=== PATIENT | female | born 1990 | race American Indian/Alaskan Native ===

== ENCOUNTER 2018-10-31 07:14 | Emergency (ER) | payer MEDICAID ==
[2018-10-31] MEDS ORDERED: DELTASONE PO ONE (08:52)
[2018-10-31] MEDS ORDERED: ATROVENT IH ONE (08:52)
[2018-10-31] MEDS ORDERED: PROVENTIL IH ONE (08:52)
[2018-10-31] MEDS ORDERED: CLARITIN PO ONE (08:53)
[2018-10-31] MEDS ORDERED: VIBRAMYCIN PO ONE (08:53)
--- NOTE | 2018-10-31 08:59 | Emergency Department Report ---
ED Asthma HPI - General Chief Complaint: Adult Asthma Stated Complaint: ASTHMA ATTACK Time Seen by Provider: 10/31/18 08:47 Source: patient Mode of arrival: Ambulatory Limitations: No Limitations - History of Present Illness Initial Comments: Ms. Khalil is a 27 yo female with mild intermittent asthma who presents with asthma attack symptoms, wheezing shortness of breath. Shortness of breath has been present for 2 days since Monday. +nasal congestion, productive cough white phlegm. Roommates smoke in the home. One hospitalization 2016 at [facility]. Normally has bad asthma attacks twice a year during weather change. Has run out of medication for nebulizer. Inhaler is not working. MD Complaint: "asthma attack", shortness of breath -: Gradual, days(s) (2) Asthma History: childhood onset, history of frequent attac, history of prior ED visit, other (no history of intubation) Severity: mild Context: ran out of meds Associated Symptoms: productive cough, chest pain, other (productive cough) - Related Data Previous Rx's Medication Instructions Recorded Last Taken Type ALBUTEROL Inhaler (OR & NICU) 2 puff IH QID PRN #1 inha 10/31/18 Unknown Rx [ProAir HFA Inhaler] ALBUTEROL NEB's [Proventil 0.083% 2.5 mg IH QID PRN #1 box 10/31/18 Unknown Rx NEBS] Doxycycline [Vibramycin CAP] 100 mg PO Q12HR 7 Days #14 capsule 10/31/18 Unknown Rx predniSONE [Deltasone] 3 tab PO QDAY 3 Days #9 tab 10/31/18 Unknown Rx Allergies Allergy/AdvReac Type Severity Reaction Status Date / Time No Known Allergies Allergy Unverified 10/31/18 07:20 ED Review of Systems ROS: Stated complaint: ASTHMA ATTACK Other details as noted in HPI Comment: All other systems reviewed and negative Constitutional: denies: fever, malaise Respiratory: cough, shortness of breath, wheezing Cardiovascular: chest pain ED Past Medical Hx - Past Medical History Previous Medical History?: Yes Hx Asthma: Yes - Surgical History Past Surgical History?: No - Social History Smoking Status: Never Smoker Substance Use Type: None - Medications Home Medications: Home Medications Medication Instructions Recorded Confirmed Last Taken Type ALBUTEROL Inhaler (OR & NICU) 2 puff IH QID PRN #1 inha 10/31/18 Unknown Rx [ProAir HFA Inhaler] ALBUTEROL NEB's [Proventil 0.083% 2.5 mg IH QID PRN #1 box 10/31/18 Unknown Rx NEBS] Doxycycline [Vibramycin CAP] 100 mg PO Q12HR 7 Days #14 capsule 10/31/18 Unknown Rx predniSONE [Deltasone] 3 tab PO QDAY 3 Days #9 tab 10/31/18 Unknown Rx ED Physical Exam - General Limitations: No Limitations General appearance: alert, in no apparent distress, other (talkative, articulate, no acute distress) - Head Head exam: Present: atraumatic, normocephalic - Eye Eye exam: Present: normal appearance - ENT ENT exam: Present: mucous membranes moist - Neck Neck exam: Present: normal inspection - Respiratory Respiratory exam: Present: wheezes, prolonged expiratory. Absent: respiratory distress, rales, rhonchi, accessory muscle use, decreased breath sounds - Cardiovascular Cardiovascular Exam: Present: regular rate, normal rhythm, normal heart sounds. Absent: systolic murmur, diastolic murmur, rubs, gallop - GI/Abdominal GI/Abdominal exam: Present: soft, normal bowel sounds. Absent: tenderness, guarding, rebound - Extremities Exam Extremities exam: Present: normal inspection - Back Exam Back exam: Present: normal inspection - Neurological Exam Neurological exam: Present: alert, oriented X3 - Psychiatric Psychiatric exam: Present: normal affect, normal mood - Skin Skin exam: Present: warm, dry, intact, normal color. Absent: rash ED Course Vital Signs 10/31/18 07:20 Temperature 98.4 F Pulse Rate 103 H Respiratory 20 Rate Blood Pressure 154/96 O2 Sat by Pulse 97 Oximetry ED Medical Decision Making - Medical Decision Making Ms. Khalil presents with mild asthma exacerbation. Prescribed doxycycline with history of tobacco smoke exposure and productive cough. Prescribed loratadine, albuterol MDI, prednisone, albuterol nebulizer solution Critical care attestation.: If time is entered above; I have spent that time in minutes in the direct care of this critically ill patient, excluding procedure time. ED Disposition Clinical Impression: Acute asthma exacerbation Disposition: DC-01 TO HOME OR SELFCARE Is pt being admited?: No Does the pt Need Aspirin: No Condition: Stable Instructions: Asthma (ED) Prescriptions: predniSONE [Deltasone] 3 tab PO QDAY 3 Days #9 tab ALBUTEROL Inhaler (OR & NICU) [ProAir HFA Inhaler] 2 puff IH QID PRN #1 inha PRN Reason: Shortness Of Breath ALBUTEROL NEB's [Proventil 0.083% NEBS] 2.5 mg IH QID PRN #1 box PRN Reason: Shortness Of Breath Doxycycline [Vibramycin CAP] 100 mg PO Q12HR 7 Days #14 capsule Forms: Work/School Release Form(ED)
[2018-10-31 10:07] VITALS: BP 151/97
== END 2018-10-31 10:05 | disposition home or self-care (01) ==
LOC: ED 07:14
DX: J45.901 Unspecified asthma with (acute) exacerbation (principal)
CPT/HCPCS: 94640; 99282; J7512

== ENCOUNTER 2019-06-06 06:46 | Emergency (ER) | payer MEDICAID ==
[2019-06-06 06:52] VITALS: BP 148/92
[2019-06-06] MEDS ORDERED: IPRATROPIUM/ALBUTEROL SULFATE 3 ML AMPUL.NEB IH ONE ×2 (06:57→07:01)
[2019-06-06] MEDS ORDERED: methylPREDNISolone Sod Succinate 125 MG/2 ML INJ IM ONE (07:43)
[2019-06-06] MEDS ORDERED: guaiFENesin 100 MG/5 ML ORAL LIQD PO ONE (07:44)
--- NOTE | 2019-06-06 07:44 | Emergency Department Report ---
Minor Respiratory - HPI Chief Complaint: Adult Asthma Stated Complaint: ASTHMA ATTACK Time Seen by Provider: 06/06/19 07:36 Duration: 2 Days Severity: mild Minor Respiratory: Yes Able to Tolerate Fluids, Yes Cough (dry), No Rhinorrhea, No Sore Throat, No Ear Pain, No Sick Contacts, No Hemoptysis, No Chest Pain, No Shortness of Breath, No Fever Other History: 28-year-old female with a history of childhood asthma currently on medications presents to ED with 2 days of dry intermittent cough in an asthmatic flareup. Patient states that she's been using her inhaler with no relief. Patient states she is out of her albuterol liquid for nebulizer. Patient states she has not been around any sick contact. She denies chest pain or difficulty breathing. ED Review of Systems ROS: Stated complaint: ASTHMA ATTACK Other details as noted in HPI Comment: All other systems reviewed and negative ED Past Medical Hx - Past Medical History Previous Medical History?: Yes Hx Asthma: Yes - Surgical History Past Surgical History?: No - Social History Smoking Status: Former Smoker Substance Use Type: None - Medications Home Medications: Home Medications Medication Instructions Recorded Confirmed Last Taken Type DOXYCYCLINE Hyclate [Vibramycin 100 mg PO Q12HR 7 Days #14 capsule 10/31/18 Unknown Rx CAP] ALBUTEROL Inhaler (OR & NICU) 2 puff IH QID PRN #1 inha 06/06/19 Unknown Rx [ProAir HFA Inhaler] ALBUTEROL NEB's [Proventil 0.083% 2.5 mg IH QID PRN #1 box 06/06/19 Unknown Rx NEBS] Benzonatate [Tessalon Perles] 100 mg PO Q8HR #30 capsule 06/06/19 Unknown Rx predniSONE [Deltasone] 3 tab PO QDAY 3 Days #9 tab 06/06/19 Unknown Rx Minor Respiratory Exam - Exam General: Vital signs noted. No distress. Alert and acting appropriately. HEENT: Yes Moist Mucous Membranes, No Pharyngeal Erythema, No Pharyngeal Exudates, No Rhinorrhea, No Conjuctival Injection, No Frontal Tenderness, No Maxillary Tenderness Ear: Neither TM Bulge, Neither TM Erythema, Neither EAC Pain, Neither EAC Discharge Neck: Yes Supple, No Adenopathy Lungs: Yes Good Air Exchange, Yes Wheezes (mild bilaterally), No Ronchi, No Stridor, No Cough, No Labored Respirations, No Retractions, No Use of Accessory Muscles, No Other Abnormal Lung Sounds Heart: Yes Regular, No Murmur Abdomen: Yes Normal Bowel Sounds, No Tenderness, No Peritoneal Signs Skin: No Rash, No Edema Neurologic: Alert and oriented, no deficits. Musculoskeletal: Unremarkable. ED Course Vital Signs 06/06/19 06:50 Temperature 98.4 F Pulse Rate 95 H Respiratory 18 Rate Blood Pressure 148/92 O2 Sat by Pulse 95 Oximetry ED Medical Decision Making - Radiology Data Radiology results: report reviewed, image reviewed CHEST 1 VIEW INDICATION: cough and wheezing. COMPARISON: None. FINDINGS: Support devices: None. Heart: Within normal limits. Pulmonary vasculature: Normal. Lungs/Pleura: No acute air space or interstitial disease. Additional findings: None. IMPRESSION: Normal chest. Signer Name: Bob Jackson MD Signed: 06/06/2019 8:13 AM Workstation Name: [id number] Transcribed By: REF Dictated By: BOB JACKSON MD Electronically Authenticated By: BOB JACKSON MD Signed Date/Time: 06/06/19 0813 - Medical Decision Making 28-year-old female presents with asthma exacerbation (Mild) ED course: Patient received a breathing treatment, Solu-Medrol, cough suppressant in the ED. Chest x-ray ordered, chest x-ray shows no acute findings. Patient had no respiratory distress in the ED. Post treatment evaluation: mild wheezing heard, no use of accessory muscles, I discussed with the patient to follow up with her primary care physician. I discussed with the patient will be going home on with albuterol inhaler as well as nebulizer Vital signs are normalized, patient is saturation at 98% on room air. Patient looks and feels much better. She is in no respiratory distress I discussed with the patient is symptoms worsen to return to ED immediately.. Critical care attestation.: If time is entered above; I have spent that time in minutes in the direct care of this critically ill patient, excluding procedure time. ED Disposition Clinical Impression: Asthmatic bronchitis Disposition: DC-01 TO HOME OR SELFCARE Is pt being admited?: No Does the pt Need Aspirin: No Condition: Stable Instructions: Acute Bronchitis (ED), Bronchospasm (ED) Additional Instructions: Make sure to follow up with the primary care physician as discussed. Take all your medications as you've been prescribed. If you have any worsening symptoms or develop new symptoms please return to ED immediately. Prescriptions: predniSONE [Deltasone] 3 tab PO QDAY 3 Days #9 tab ALBUTEROL Inhaler (OR & NICU) [ProAir HFA Inhaler] 2 puff IH QID PRN #1 inha PRN Reason: Shortness Of Breath ALBUTEROL NEB's [Proventil 0.083% NEBS] 2.5 mg IH QID PRN #1 box PRN Reason: Shortness Of Breath Benzonatate [Tessalon Perles] 100 mg PO Q8HR #30 capsule Referrals: [facility] [Provider Group] - 3-5 Days [facility] [Outside] - 3-5 Days [facility] [Outside] - 3-5 Days Forms: Work/School Release Form(ED) Time of Disposition: 08:00
--- NOTE | 2019-06-06 08:18 | XRay Report ---
CHEST 1 VIEW INDICATION: cough and wheezing. COMPARISON: None. FINDINGS: Support devices: None. Heart: Within normal limits. Pulmonary vasculature: Normal. Lungs/Pleura: No acute air space or interstitial disease. Additional findings: None. IMPRESSION: Normal chest. Signer Name: Bob Dexter MD Signed: 06/06/2019 8:13 AM Workstation Name: [id number]
== END 2019-06-06 08:27 | disposition home or self-care (01) ==
LOC: ED 06:46
DX: J45.909 Unspecified asthma, uncomplicated (principal); Z87.891 Personal history of nicotine dependence; Z79.899 Other long term (current) drug therapy
CPT/HCPCS: 71046; 94640; 96372; 99284; J2930

== ENCOUNTER 2019-09-18 11:36 | Emergency (ER) | payer MEDICAID ==
--- NOTE | 2019-09-18 12:43 | Event Note ---
ED Screening Note Date of service: 09/18/19 Time: 12:41 ED Screening Note: Pt is a 28 yo female She was not screened in triage chart was opened in error charted on the wrong patient
[2019-09-18 13:56] VITALS: BP 145/83
--- NOTE | 2019-09-18 14:01 | Event Note ---
ED Screening Note Date of service: 09/18/19 Time: 13:57 ED Screening Note: 28 yo asthmatic female presents with asthma flare up stating her meds are not working, albuterol inhaler pt also mentions intermittent mild vaginal bleed x 1 month state nexplanon x 3 years , last cycle 2 yyears ago This initial assessment/diagnostic orders/clinical plan/treatment(s) is/are subject to change based on patients health status, clinical progression and re- assessment by fellow clinical providers in the ED. Further treatment and workup at subsequent clinical providers discretion. Patient/guardian urged not to elope from the ED as their condition may be serious if not clinically assessed and managed. 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
== END 2019-09-18 15:00 | disposition left against medical advice (07) ==
LOC: ED 11:36
DX: J45.909 Unspecified asthma, uncomplicated (principal); N93.9 Abnormal uterine and vaginal bleeding, unspecified; Z53.21 Procedure and treatment not carried out due to patient leaving prior to being seen by health care provider

== ENCOUNTER 2020-05-11 09:20 | Emergency (ER) | payer MEDICAID ==
[2020-05-11 09:33] VITALS: BP 149/86
[2020-05-11] MEDS ORDERED: FLUORESCEIN 1 MG STRIP OP ONE ×2 (11:27)
[2020-05-11] MEDS ORDERED: IBUPROFEN 800 MG TAB PO ONE (11:40)
[2020-05-11] MEDS ORDERED: HYDROcodone/ACETAMINOPHEN 5-325 MG TAB PO ONE (11:40)
--- NOTE | 2020-05-11 11:44 | Emergency Department Report ---
ED General Adult HPI - General Chief complaint: Eye Problems Stated complaint: LT EYE SWOLLEN/DRAINAGE Time Seen by Provider: 05/11/20 11:00 Source: patient Mode of arrival: Ambulatory Limitations: No Limitations - History of Present Illness Initial comments: 29 yo AA F pt presents with complaints of left eye pain and swelling x 2 days. Pt reports the pain started yesterday when she was attempted to get something out of her eye. She denies any contact lenses or direct trauma to the eye, pain with eye movements, vision changes, photophobia, or headache. She rates her current pain as a 8/10 in severity and describes it as throbbing. - Related Data Previous Rx's Medication Instructions Recorded Last Taken Type DOXYCYCLINE Hyclate [Vibramycin 100 mg PO Q12HR 7 Days #14 capsule 10/31/18 Unknown Rx CAP] ALBUTEROL NEB's [Proventil 0.083% 2.5 mg IH QID PRN #1 box 06/06/19 Unknown Rx NEBS] Benzonatate [Tessalon Perles] 100 mg PO Q8HR #30 capsule 06/06/19 Unknown Rx predniSONE [Deltasone] 3 tab PO QDAY 3 Days #9 tab 06/06/19 Unknown Rx Albuterol Mdi (or & Nicu Only) 2 puff IH QID PRN #1 inha 05/11/20 Unknown Rx [ProAir HFA Inhaler] Clindamycin [Clindamycin CAP] 300 mg PO Q6H 3 Days #12 capsule 05/11/20 Unknown Rx Erythromycin [Erythromycin Ophth 1 cm OU Q4H 7 Days #1 tube 05/11/20 Unknown Rx Oint] Ibuprofen [Motrin 800 MG tab] 800 mg PO Q8HR PRN #15 tablet 05/11/20 Unknown Rx Allergies Allergy/AdvReac Type Severity Reaction Status Date / Time No Known Allergies Allergy Unverified 10/31/18 07:20 ED Review of Systems ROS: Stated complaint: LT EYE SWOLLEN/DRAINAGE Other details as noted in HPI Constitutional: denies: chills, diaphoresis, fever, malaise Eyes: eye pain, eye discharge. denies: vision change Respiratory: denies: cough Skin: change in color. denies: rash, lesions Neurological: denies: headache, numbness Hematological/Lymphatic: denies: swollen glands ED Past Medical Hx - Past Medical History Previous Medical History?: Yes Hx Asthma: Yes - Social History Smoking Status: Former Smoker Substance Use Type: None - Medications Home Medications: Home Medications Medication Instructions Recorded Confirmed Last Taken Type DOXYCYCLINE Hyclate [Vibramycin 100 mg PO Q12HR 7 Days #14 capsule 10/31/18 Unknown Rx CAP] ALBUTEROL NEB's [Proventil 0.083% 2.5 mg IH QID PRN #1 box 06/06/19 Unknown Rx NEBS] Benzonatate [Tessalon Perles] 100 mg PO Q8HR #30 capsule 06/06/19 Unknown Rx predniSONE [Deltasone] 3 tab PO QDAY 3 Days #9 tab 06/06/19 Unknown Rx Albuterol Mdi (or & Nicu Only) 2 puff IH QID PRN #1 inha 05/11/20 Unknown Rx [ProAir HFA Inhaler] Clindamycin [Clindamycin CAP] 300 mg PO Q6H 3 Days #12 capsule 05/11/20 Unknown Rx Erythromycin [Erythromycin Ophth 1 cm OU Q4H 7 Days #1 tube 05/11/20 Unknown Rx Oint] Ibuprofen [Motrin 800 MG tab] 800 mg PO Q8HR PRN #15 tablet 05/11/20 Unknown Rx ED Physical Exam - General Limitations: No Limitations General appearance: alert, in no apparent distress - Head Head exam: Present: atraumatic, normocephalic - Eye Eye exam: Present: PERRL, EOMI (no pain with EOMs), conjunctival injection (left), periorbital swelling (mild with milkd erythema of upper and lower left lids), periorbital tenderness (left upper inner lid only). Absent: scleral icterus Pupils: Present: other (no corneal abrasion noted on wood's lamp exam; eyelid everted and swept-no foreign bodies noted. ) - ENT ENT exam: Present: mucous membranes moist - Respiratory Respiratory exam: Absent: respiratory distress - Cardiovascular Cardiovascular Exam: Present: regular rate - Neurological Exam Neurological exam: Present: alert, oriented X3 - Psychiatric Psychiatric exam: Present: normal affect, normal mood - Skin Skin exam: Present: warm, dry, intact. Absent: rash ED Course Vital Signs 05/11/20 09:28 Temperature 97.5 F L Pulse Rate 77 Respiratory 18 Rate Blood Pressure 149/86 O2 Sat by Pulse 97 Oximetry ED Medical Decision Making - Medical Decision Making 29 yo AA F pt presents with complaints of left eye pain and swelling x 2 days. Pt reports the pain started yesterday when she was attempted to get something out of her eye. She denies any contact lenses or direct trauma to the eye, pain with eye movements, photophobia, or headache. She rates her current pain as a 8/10 in severity and describes it as throbbing. No corneal abrasion noted on wood's lamp eye exam. Significant erythema of the conjunctiva noted with mild swelling of the upper and lower lids. Will treat for bacterial conjunctivitis with clindamycin and erythromycin. Recommend f/u with PCP within 2-3 days. Discussed signs and symptoms that should prompt immediate return to the ED, pt states understanding. Critical care attestation.: If time is entered above; I have spent that time in minutes in the direct care of this critically ill patient, excluding procedure time. ED Disposition Clinical Impression: Bacterial conjunctivitis of left eye Disposition: DC-01 TO HOME OR SELFCARE Is pt being admited?: No Condition: Stable Instructions: Conjunctivitis (ED), Stye (ED) Prescriptions: Clindamycin [Clindamycin CAP] 300 mg PO Q6H 3 Days #12 capsule Erythromycin [Erythromycin Ophth Oint] 1 cm OU Q4H 7 Days #1 tube Ibuprofen [Motrin 800 MG tab] 800 mg PO Q8HR PRN #15 tablet PRN Reason: pain Albuterol Mdi (or & Nicu Only) [ProAir HFA Inhaler] 2 puff IH QID PRN #1 inha PRN Reason: Shortness Of Breath Referrals: PRIMARY CARE,MD [Primary Care Provider] - 3-5 Days Forms: Work/School Release Form(ED)
== END 2020-05-11 12:05 | disposition home or self-care (01) ==
LOC: ED 09:20
DX: H10.9 Unspecified conjunctivitis (principal); J45.909 Unspecified asthma, uncomplicated; Z79.899 Other long term (current) drug therapy; Z87.891 Personal history of nicotine dependence

== ENCOUNTER 2020-05-14 16:05 | Emergency (ER) | payer MEDICAID ==
[2020-05-14 17:06] VITALS: BP 146/83
--- NOTE | 2020-05-14 18:56 | Emergency Department Report ---
ED Eye Problem HPI - General Chief complaint: Eye Problems Stated complaint: EYE PAINS CHEST PAINS Time Seen by Provider: 05/14/20 18:55 Source: patient Mode of arrival: Ambulatory Limitations: No Limitations - History of Present Illness Initial comments: Patient is a 29-year-old female presents emergency room with complaints of bilateral eye irritation that began 3 days ago. She states that initially it began in the left eye but now feels like it spreading to the right eye. She states that she has associated eye itching, eye watering, eye drainage, crusting of the eyes, eyelash matting. She initially states that a bug flew into her eye and she got out with her fingers, she had a Montes lamp examination in the emergency department 3 days ago which did not show any signs of uptake, she was prescribed medications and given follow-up. She states that she presents due to continued irritation and drainage. She states that the swelling has improved. She denies any contact lens use. She denies any vision changes. No past medical history. No allergies medications. - Related Data Previous Rx's Medication Instructions Recorded Last Taken Type DOXYCYCLINE Hyclate [Vibramycin 100 mg PO Q12HR 7 Days #14 capsule 10/31/18 Unknown Rx CAP] ALBUTEROL NEB's [Proventil 0.083% 2.5 mg IH QID PRN #1 box 06/06/19 Unknown Rx NEBS] Benzonatate [Tessalon Perles] 100 mg PO Q8HR #30 capsule 06/06/19 Unknown Rx predniSONE [Deltasone] 3 tab PO QDAY 3 Days #9 tab 06/06/19 Unknown Rx Albuterol Mdi (or & Nicu Only) 2 puff IH QID PRN #1 inha 05/11/20 Unknown Rx [ProAir HFA Inhaler] Clindamycin [Clindamycin CAP] 300 mg PO Q6H 3 Days #12 capsule 05/11/20 Unknown Rx Erythromycin [Erythromycin Ophth 1 cm OU Q4H 7 Days #1 tube 05/11/20 Unknown Rx Oint] Ibuprofen [Motrin 800 MG tab] 800 mg PO Q8HR PRN #15 tablet 05/11/20 Unknown Rx Ketotifen Fumarate [Allergy Eye 1 drop OP BID 7 Days #1 bottle 05/14/20 Unknown Rx Drops] Moxifloxacin 0.5% [Vigamox] 1 drops OP Q8H 7 Days #1 bottle 05/14/20 Unknown Rx Allergies Allergy/AdvReac Type Severity Reaction Status Date / Time No Known Allergies Allergy Unverified 10/31/18 07:20 ED Review of Systems ROS: Stated complaint: EYE PAINS CHEST PAINS Other details as noted in HPI Comment: All other systems reviewed and negative ED Past Medical Hx - Past Medical History Previous Medical History?: Yes Hx Asthma: Yes - Surgical History Past Surgical History?: No - Social History Smoking Status: Former Smoker Substance Use Type: None - Medications Home Medications: Home Medications Medication Instructions Recorded Confirmed Last Taken Type DOXYCYCLINE Hyclate [Vibramycin 100 mg PO Q12HR 7 Days #14 capsule 10/31/18 Unknown Rx CAP] ALBUTEROL NEB's [Proventil 0.083% 2.5 mg IH QID PRN #1 box 06/06/19 Unknown Rx NEBS] Benzonatate [Tessalon Perles] 100 mg PO Q8HR #30 capsule 06/06/19 Unknown Rx predniSONE [Deltasone] 3 tab PO QDAY 3 Days #9 tab 06/06/19 Unknown Rx Albuterol Mdi (or & Nicu Only) 2 puff IH QID PRN #1 inha 05/11/20 Unknown Rx [ProAir HFA Inhaler] Clindamycin [Clindamycin CAP] 300 mg PO Q6H 3 Days #12 capsule 05/11/20 Unknown Rx Erythromycin [Erythromycin Ophth 1 cm OU Q4H 7 Days #1 tube 05/11/20 Unknown Rx Oint] Ibuprofen [Motrin 800 MG tab] 800 mg PO Q8HR PRN #15 tablet 05/11/20 Unknown Rx Ketotifen Fumarate [Allergy Eye 1 drop OP BID 7 Days #1 bottle 05/14/20 Unknown Rx Drops] Moxifloxacin 0.5% [Vigamox] 1 drops OP Q8H 7 Days #1 bottle 05/14/20 Unknown Rx ED Physical Exam - General Limitations: No Limitations General appearance: alert, in no apparent distress - Head Head exam: Present: atraumatic, normocephalic - Eye Eye exam: Present: PERRL, EOMI, conjunctival injection (bilateral conjunctival injection, left greater than right, bilateral mucus drainage, bilateral eye watering, no visualized signs of ulceration), other (no pain with EOMI, no signs of entrapment, no visualized signs of foreign body ). Absent: periorbital swelling, periorbital tenderness Pupils: Present: normal accommodation - ENT ENT exam: Present: mucous membranes moist - Respiratory Respiratory exam: Absent: respiratory distress, accessory muscle use - Neurological Exam Neurological exam: Present: alert, oriented X3 - Psychiatric Psychiatric exam: Present: normal affect, normal mood - Skin Skin exam: Present: warm, dry, intact ED Course Vital Signs 05/14/20 17:03 Temperature 98.4 F Pulse Rate 84 Respiratory 18 Rate Blood Pressure 146/83 [Right] O2 Sat by Pulse 100 Oximetry ED Medical Decision Making - Medical Decision Making Patient is a 29-year-old female presents emergency room with complaints of bilateral eye irritation that began 3 days ago. She states that initially it began in the left eye but now feels like it spreading to the right eye. She states that she has associated eye itching, eye watering, eye drainage, crusting of the eyes, eyelash matting. She initially states that a bug flew into her eye and she got out with her fingers, she had a Montes lamp examination in the emergency department 3 days ago which did not show any signs of uptake, she was prescribed medications and given follow-up. She states that she presents due to continued irritation and drainage. She states that the swelling has improved. She denies any contact lens use. She denies any vision changes. No past medical history. No allergies medications. vitals are normal. on exam: bila teral conjunctival injection, left greater than right, bilateral mucus drainage, bilateral eye watering, no visualized signs of ulceration, no pain with EOMI, no signs of entrapment, no visualized signs of foreign body, no periorbital edema, erythema, or tenderness palpation. Examination appears consistent with conjunctivitis. Patient given prescription for moxifloxacin eyedrops and Zaditor eyedrops. Patient will be referred to ophthalmology. Advised patient Please use medication as prescribed. Please separate drops by 1 hour. Please continue to use the erythromycin ophthalmic ointment as prescribed and please separate it by an hour as well. Please follow-up with senior trial attorney. Return to emergency room for any new or worsening symptoms. Critical care attestation.: If time is entered above; I have spent that time in minutes in the direct care of this critically ill patient, excluding procedure time. ED Disposition Clinical Impression: Conjunctivitis Qualifiers: Conjunctivitis type: unspecified Laterality: bilateral Qualified Code(s): H10.9 - Unspecified conjunctivitis Disposition: DC-01 TO HOME OR SELFCARE Is pt being admited?: No Does the pt Need Aspirin: No Condition: Stable Instructions: Conjunctivitis (ED) Additional Instructions: Please use medication as prescribed. Please separate drops by 1 hour. Please continue to use the erythromycin ophthalmic ointment as prescribed and please separate it by an hour as well. Please follow-up with senior trial attorney. Return to emergency room for any new or worsening symptoms. Prescriptions: Ketotifen Fumarate [Allergy Eye Drops] 1 drop OP BID 7 Days #1 bottle Moxifloxacin 0.5% [Vigamox] 1 drops OP Q8H 7 Days #1 bottle Referrals: WILIAM ARELLANO MD [Staff Physician] - 2-3 Days [facility] [Provider Group] - 2-3 Days Forms: Work/School Release Form(ED) Time of Disposition: 18:59 Print Language: AMHARIC
== END 2020-05-14 20:30 | disposition home or self-care (01) ==
LOC: ED 16:05
DX: H10.9 Unspecified conjunctivitis (principal); J45.909 Unspecified asthma, uncomplicated; Z87.891 Personal history of nicotine dependence; Z79.1 Long term (current) use of non-steroidal anti-inflammatories (NSAID); Z79.2 Long term (current) use of antibiotics; Z79.899 Other long term (current) drug therapy
CPT/HCPCS: 99282

== ENCOUNTER 2020-12-05 14:40 | Emergency (ER) | payer MEDICAID ==
[2020-12-05 14:55] VITALS: BP 149/61
[2020-12-05] MEDS ORDERED: dexAMETHasone 20 MG/5 ML VIAL IM ONE (15:15)
--- NOTE | 2020-12-05 15:21 | Emergency Department Report ---
ED ENT HPI - General Chief complaint: Sore Throat Stated complaint: sore throat Time Seen by Provider: 12/05/20 15:09 Source: patient Mode of arrival: Ambulatory Limitations: No Limitations - History of Present Illness Initial comments: Patient is a 30-year-old female presents emergency room with complaints of a sore throat that began 3 days ago. She states that she also has a dry cough. She states that she has pain with swallowing. She is able to swallow her secretions but states it is painful. She states that she has had a sick contact and reports that her daughter and her niece had URI symptoms. She denies any fever, nausea, vomiting, diarrhea, shortness of breath, chest pain, abdominal pain. Patient states that they recently traveled to [facility] a week ago. Past medical history of asthma, she states that she needs a refill of her inhaler but has no wheezing currently. No allergies to medications. - Related Data Previous Rx's Medication Instructions Recorded Last Taken Type DOXYCYCLINE Hyclate [Vibramycin 100 mg PO Q12HR 7 Days #14 capsule 10/31/18 Unknown Rx CAP] ALBUTEROL NEB's [Proventil 0.083% 2.5 mg IH QID PRN #1 box 06/06/19 Unknown Rx NEBS] Benzonatate [Tessalon Perles] 100 mg PO Q8HR #30 capsule 06/06/19 Unknown Rx predniSONE [Deltasone] 3 tab PO QDAY 3 Days #9 tab 06/06/19 Unknown Rx Albuterol Mdi (or & Nicu Only) 2 puff IH QID PRN #1 inha 05/11/20 Unknown Rx [ProAir HFA Inhaler] Clindamycin [Clindamycin CAP] 300 mg PO Q6H 3 Days #12 capsule 05/11/20 Unknown Rx Erythromycin [Erythromycin Ophth 1 cm OU Q4H 7 Days #1 tube 05/11/20 Unknown Rx Oint] Ibuprofen [Motrin 800 MG tab] 800 mg PO Q8HR PRN #15 tablet 05/11/20 Unknown Rx Ketotifen Fumarate [Allergy Eye 1 drop OP BID 7 Days #1 bottle 05/14/20 Unknown Rx Drops] Moxifloxacin 0.5% 1 drops OP Q8H 7 Days #1 bottle 05/14/20 Unknown Rx Albuterol Sulfate [Proventil Hfa] 1 inhalation IH TID PRN #1 05/15/21 Unknown Rx [email or web address] Amoxicillin [Amoxicillin TAB] 875 mg PO BID 10 Days #20 tablet 12/05/20 Unknown Rx Nystas/Diphen/Xyl Visc/Mylanta 30 ml MM Q4H PRN #300 ml 12/05/20 Unknown Rx [Magic Mouthwash] Allergies Allergy/AdvReac Type Severity Reaction Status Date / Time No Known Allergies Allergy Unverified 10/31/18 07:20 ED Dental HPI - General Chief complaint: Sore Throat Stated complaint: sore throat Time Seen by Provider: 12/05/20 15:09 Source: patient Mode of arrival: Ambulatory Limitations: No Limitations - Related Data Previous Rx's Medication Instructions Recorded Last Taken Type DOXYCYCLINE Hyclate [Vibramycin 100 mg PO Q12HR 7 Days #14 capsule 10/31/18 Unknown Rx CAP] ALBUTEROL NEB's [Proventil 0.083% 2.5 mg IH QID PRN #1 box 06/06/19 Unknown Rx NEBS] Benzonatate [Tessalon Perles] 100 mg PO Q8HR #30 capsule 06/06/19 Unknown Rx predniSONE [Deltasone] 3 tab PO QDAY 3 Days #9 tab 06/06/19 Unknown Rx Albuterol Mdi (or & Nicu Only) 2 puff IH QID PRN #1 inha 05/11/20 Unknown Rx [ProAir HFA Inhaler] Clindamycin [Clindamycin CAP] 300 mg PO Q6H 3 Days #12 capsule 05/11/20 Unknown Rx Erythromycin [Erythromycin Ophth 1 cm OU Q4H 7 Days #1 tube 05/11/20 Unknown Rx Oint] Ibuprofen [Motrin 800 MG tab] 800 mg PO Q8HR PRN #15 tablet 05/11/20 Unknown Rx Ketotifen Fumarate [Allergy Eye 1 drop OP BID 7 Days #1 bottle 05/14/20 Unknown Rx Drops] Moxifloxacin 0.5% 1 drops OP Q8H 7 Days #1 bottle 05/14/20 Unknown Rx Albuterol Sulfate [Proventil Hfa] 1 inhalation IH TID PRN #1 12/05/20 Unknown Rx [email or web address] Amoxicillin [Amoxicillin TAB] 875 mg PO BID 10 Days #20 tablet 12/05/20 Unknown Rx Nystas/Diphen/Xyl Visc/Mylanta 30 ml MM Q4H PRN #300 ml 12/05/20 Unknown Rx [Magic Mouthwash] Allergies Allergy/AdvReac Type Severity Reaction Status Date / Time No Known Allergies Allergy Unverified 10/31/18 07:20 ED Review of Systems ROS: Stated complaint: sore throat Other details as noted in HPI Comment: All other systems reviewed and negative ED Past Medical Hx - Past Medical History Hx Asthma: Yes - Surgical History Past Surgical History?: No - Social History Smoking Status: Never Smoker Substance Use Type: Alcohol - Medications Home Medications: Home Medications Medication Instructions Recorded Confirmed Last Taken Type DOXYCYCLINE Hyclate [Vibramycin 100 mg PO Q12HR 7 Days #14 capsule 10/31/18 Unknown Rx CAP] ALBUTEROL NEB's [Proventil 0.083% 2.5 mg IH QID PRN #1 box 06/06/19 Unknown Rx NEBS] Benzonatate [Tessalon Perles] 100 mg PO Q8HR #30 capsule 06/06/19 Unknown Rx predniSONE [Deltasone] 3 tab PO QDAY 3 Days #9 tab 06/06/19 Unknown Rx Albuterol Mdi (or & Nicu Only) 2 puff IH QID PRN #1 inha 05/11/20 Unknown Rx [ProAir HFA Inhaler] Clindamycin [Clindamycin CAP] 300 mg PO Q6H 3 Days #12 capsule 05/11/20 Unknown Rx Erythromycin [Erythromycin Ophth 1 cm OU Q4H 7 Days #1 tube 05/11/20 Unknown Rx Oint] Ibuprofen [Motrin 800 MG tab] 800 mg PO Q8HR PRN #15 tablet 05/11/20 Unknown Rx Ketotifen Fumarate [Allergy Eye 1 drop OP BID 7 Days #1 bottle 05/14/20 Unknown Rx Drops] Moxifloxacin 0.5% 1 drops OP Q8H 7 Days #1 bottle 05/14/20 Unknown Rx Albuterol Sulfate [Proventil Hfa] 1 inhalation IH TID PRN #1 12/05/20 Unknown Rx [email or web address] Amoxicillin [Amoxicillin TAB] 875 mg PO BID 10 Days #20 tablet 12/05/20 Unknown Rx Nystas/Diphen/Xyl Visc/Mylanta 30 ml MM Q4H PRN #300 ml 12/05/20 Unknown Rx [Magic Mouthwash] ED Physical Exam - General Limitations: No Limitations General appearance: alert, in no apparent distress - Head Head exam: Present: atraumatic, normocephalic - Eye Eye exam: Present: normal appearance - ENT ENT exam: Present: mucous membranes moist, TM's normal bilaterally, normal external ear exam, other (bilateral tonsillar hypertrophy with exudates, airway intact, mild muffled voice, uvula is midline, no uvular edema or deviation, no trismus, no tongue elevation, able to tolerate secretions) - Respiratory Respiratory exam: Present: normal lung sounds bilaterally. Absent: respiratory distress, wheezes, rales, rhonchi, stridor, chest wall tenderness, accessory muscle use, decreased breath sounds, prolonged expiratory - Cardiovascular Cardiovascular Exam: Present: regular rate, normal rhythm, normal heart sounds. Absent: systolic murmur, diastolic murmur, rubs, gallop - Neurological Exam Neurological exam: Present: alert, oriented X3 - Psychiatric Psychiatric exam: Present: normal affect, normal mood - Skin Skin exam: Present: warm, dry, intact ED Course Vital Signs 12/05/20 14:53 Temperature 99.4 F Pulse Rate 93 H Respiratory 18 Rate Blood Pressure 149/61 O2 Sat by Pulse 99 Oximetry ED Medical Decision Making - Medical Decision Making Patient is a 30-year-old female presents emergency room with complaints of a sore throat that began 3 days ago. She states that she also has a dry cough. She states that she has pain with swallowing. She is able to swallow her secretions but states it is painful. She states that she has had a sick contact and reports that her daughter and her niece had URI symptoms. She denies any fever, nausea, vomiting, diarrhea, shortness of breath, chest pain, abdominal pain. Patient states that they recently traveled to [facility] a week ago. Past medical history of asthma, she states that she needs a refill of her inhaler but has no wheezing currently. No allergies to medications. Vitals are stable. On exam:bilateral tonsillar hypertrophy with exudates, airway intact, mild muffled voice, uvula is midline, no uvular edema or deviation, no trismus, no tongue elevation, able to tolerate secretions. Examination very consistent with tonsillitis. Patient given dexamethasone IM on the emergency department and symptoms improved. Patient given refill of her home medication albuterol inhaler as requested. Patient given prescription for medications. Advised patient Please take medication as prescribed. Increase your fluid intake over the next several days. Gargle with warm salt water 3 times a day. Throw away your toothbrush after being on antibiotics for 24 hours. Do not drink after others or allow others to drink after you. Follow-up with your primary care doctor for reexamination. Return to emergency room for any new or worsening symptoms. Critical care attestation.: If time is entered above; I have spent that time in minutes in the direct care of this critically ill patient, excluding procedure time. ED Disposition Clinical Impression: Tonsillitis, Medication refill Disposition: TO HOME OR SELFCARE Is pt being admited?: No Does the pt Need Aspirin: No Condition: Stable Instructions: Tonsillitis, [id number] Additional Instructions: Please take medication as prescribed. Increase your fluid intake over the next several days. Gargle with warm salt water 3 times a day. Throw away your toothbrush after being on antibiotics for 24 hours. Do not drink after others or allow others to drink after you. Follow-up with your primary care doctor for reexamination. Return to emergency room for any new or worsening symptoms. Prescriptions: Amoxicillin [Amoxicillin TAB] 875 mg PO BID 10 Days #20 tablet Nystas/Diphen/Xyl Visc/Mylanta [Magic Mouthwash] 30 ml MM Q4H PRN #300 ml PRN Reason: sore throat Albuterol Sulfate [Proventil Hfa] 1 inhalation IH TID PRN #1 [email or web address] PRN Reason: shortness of breath/wheezing Referrals: JOHN WATSON MD [Staff Physician] - 2-3 Days [facility] [Provider Group] - 2-3 Days Time of Disposition: 15:19 Print Language: GUYANESE
== END 2020-12-05 16:55 | disposition home or self-care (01) ==
LOC: ED 14:40
DX: J03.90 Acute tonsillitis, unspecified (principal); Z76.0 Encounter for issue of repeat prescription; J45.909 Unspecified asthma, uncomplicated; Z79.1 Long term (current) use of non-steroidal anti-inflammatories (NSAID); Z79.2 Long term (current) use of antibiotics; Z79.899 Other long term (current) drug therapy
CPT/HCPCS: 96372; 99282; J1100

== ENCOUNTER 2021-01-14 17:58 | Emergency (ER) | payer MEDICAID ==
[2021-01-14 18:15] VITALS: BP 135/94
--- NOTE | 2021-01-14 18:16 | Emergency Department Report ---
ED Rash HPI - HPI Chief Complaint: Allergic Reaction Stated Complaint: RASH/ITCHING Time Seen by Provider: 01/14/21 18:15 Duration: 5 Days Location: Other Suspected Cause: Unknown Rash Symptoms: Yes Itching, No Facial Swelling, No Tongue/Oral Swelling, No Breathing Difficulties, No Choking Sensation, No Wheezing/Dyspnea, No Peeling, No Blistering, No Fever, No Lightheaded, No Malaise, No Myalgias Severity: mild Other History: 30 yo comes to ER with rash that comes and goes. It has happened since Monday. She takes benadryl and it goes away. She shows me pictures and they are hives. She has none on exam now. VSS. ABC intact. denies cp or sob. She does not know what the allergen is. No hx allergies. No one in the home with the same. ED Review of Systems ROS: Stated complaint: RASH/ITCHING Other details as noted in HPI Comment: All other systems reviewed and negative ED Past Medical Hx - Past Medical History Previous Medical History?: Yes Hx Asthma: Yes Additional medical history: obese - Surgical History Past Surgical History?: No - Family History Family history: no significant - Social History Smoking Status: Never Smoker Substance Use Type: Alcohol - Medications Home Medications: Home Medications Medication Instructions Recorded Confirmed Last Taken Type DOXYCYCLINE Hyclate [Vibramycin 100 mg PO Q12HR 7 Days #14 capsule 10/31/18 Unknown Rx CAP] ALBUTEROL NEB's [Proventil 0.083% 2.5 mg IH QID PRN #1 box 06/06/19 Unknown Rx NEBS] Benzonatate [Tessalon Perles] 100 mg PO Q8HR #30 capsule 06/06/19 Unknown Rx predniSONE [Deltasone] 3 tab PO QDAY 3 Days #9 tab 06/06/19 Unknown Rx Albuterol Mdi (or & Nicu Only) 2 puff IH QID PRN #1 inha 05/11/20 Unknown Rx [ProAir HFA Inhaler] Clindamycin [Clindamycin CAP] 300 mg PO Q6H 3 Days #12 capsule 05/11/20 Unknown Rx Erythromycin [Erythromycin Ophth 1 cm OU Q4H 7 Days #1 tube 05/11/20 Unknown Rx Oint] Ibuprofen [Motrin 800 MG tab] 800 mg PO Q8HR PRN #15 tablet 05/11/20 Unknown Rx Ketotifen Fumarate [Allergy Eye 1 drop OP BID 7 Days #1 bottle 05/14/20 Unknown Rx Drops] Moxifloxacin 0.5% 1 drops OP Q8H 7 Days #1 bottle 05/14/20 Unknown Rx Albuterol Sulfate [Proventil Hfa] 1 inhalation IH TID PRN #1 12/05/20 Unknown Rx [email or web address] Amoxicillin [Amoxicillin TAB] 875 mg PO BID 10 Days #20 tablet 12/05/20 Unknown Rx Nystas/Diphen/Xyl Visc/Mylanta 30 ml MM Q4H PRN #300 ml 12/05/20 Unknown Rx [Magic Mouthwash] Cetirizine HCl [ZyrTEC] 10 mg PO DAILY #30 capsule 01/14/21 Unknown Rx diphenhydrAMINE [Benadryl CAP] 25 mg PO Q8HR PRN #20 capsule 01/14/21 Unknown Rx predniSONE [Deltasone] 20 mg PO DAILY #5 tablet 01/14/21 Unknown Rx Rash Exam - Exam General: Vital signs noted. No distress. Alert and acting appropriately. HEENT: No Periorbital Edema, No Conjuctival Injection, No Chemosis, No Perioral Edema, No Tongue Edema, No Uvular Edema, No Compromised Airway, No Drooling Lungs: Yes Good Air Exchange (Normal Breath Sounds), No Wheezes, No Ronchi, No Stridor, No Cough, No Labored Respirations, No Retractions, No Use of Accessory Muscles, No Other Abnormal Lung Sounds Heart: Yes Regular, No Murmur Other: Positive: Abdomen Normal, Neurologic Normal, Musculoskeletal Normal ED Course Vital Signs 01/14/21 18:14 Temperature 98.0 F Pulse Rate 102 H Respiratory 18 Rate Blood Pressure 135/94 O2 Sat by Pulse 99 Oximetry ED Medical Decision Making - Medical Decision Making simple rash Pt educated on treatment of rash and identification of trigger. Dc home with rx and pcp follow up if persists. She understands she may need to see an specialty development consultant to identify cultprit. Ambulatory non illl appearing and taking po on dc Vital Signs 01/14/21 18:14 Temperature 98.0 F Pulse Rate 102 H Respiratory 18 Rate Blood Pressure 135/94 O2 Sat by Pulse 99 Oximetry - Differential Diagnosis rash/allergy Critical care attestation.: If time is entered above; I have spent that time in minutes in the direct care of this critically ill patient, excluding procedure time. ED Disposition Clinical Impression: Rash Disposition: DC-01 TO HOME OR SELFCARE Is pt being admited?: No Does the pt Need Aspirin: No Condition: Stable Instructions: Hives Additional Instructions: meds as ordered today follow up with pcp next week if persists for the testing we discussed referral below Prescriptions: diphenhydrAMINE [Benadryl CAP] 25 mg PO Q8HR PRN #20 capsule PRN Reason: Itching predniSONE [Deltasone] 20 mg PO DAILY #5 tablet Cetirizine HCl [ZyrTEC] 10 mg PO DAILY #30 capsule Referrals: JOHN WATSON MD [Staff Physician] - 3-5 Days Forms: Work/School Release Form(ED) Time of Disposition: 18:16
[2021-01-14] MEDS ORDERED: methylPREDNISolone ACETATE 80 MG/1 ML INJ IM ONE (18:19)
== END 2021-01-14 18:31 | disposition home or self-care (01) ==
LOC: ED 17:58
DX: R21 Rash and other nonspecific skin eruption (principal); J45.909 Unspecified asthma, uncomplicated; Z79.1 Long term (current) use of non-steroidal anti-inflammatories (NSAID); Z79.2 Long term (current) use of antibiotics; Z79.899 Other long term (current) drug therapy
CPT/HCPCS: 99281

== ENCOUNTER 2021-01-27 15:06 | Emergency (ER) | payer MEDICAID ==
--- NOTE | 2021-01-27 15:30 | Emergency Department Report ---
ED Lower Extremity HPI - General Stated Complaint: ANKLE INURY LT Time Seen by Provider: 01/27/21 15:21 Source: patient Mode of arrival: Ambulatory (With crutches) Limitations: No Limitations - History of Present Illness Initial Comments: This is a 30-year-old female nontoxic, well nourished in appearance, no acute signs of distress presents to the ED with for a new splint placement. Patient stated that her splint got wet and she removed it this morning. Patient otherwise denies any new trauma or injuries. Patient stated was unable to follow-up with her orthopedic doctor. Patient was seen by me and had a questionable left ankle fracture. A splint has been placed with patient remove the. Patient otherwise denies any other complaints or symptoms. Patient does have crutches present today. Patient denies any numbness, tingling, fever, chills, nausea, vomiting, chest pain, shortness of breath, headache, stiff neck. Patient denies any joint swelling or joint redness. Patient denies decreased range of motion. Patient stated has decreased gait due to pain. Patient denies any allergies or significant past medical history. MD Complaint: ankle injury -: week(s) Injury: Ankle: Left Severity scale (0 -10): 0 Associated Symptoms: able to partially bear weight. denies: snap/pop sensation, swelling, numbness, tingling, unable to bear weight - Related Data Previous Rx's Medication Instructions Recorded Last Taken Type DOXYCYCLINE Hyclate [Vibramycin 100 mg PO Q12HR 7 Days #14 capsule 10/31/18 Unknown Rx CAP] ALBUTEROL NEB's [Proventil 0.083% 2.5 mg IH QID PRN #1 box 06/06/19 Unknown Rx NEBS] Benzonatate [Tessalon Perles] 100 mg PO Q8HR #30 capsule 06/06/19 Unknown Rx predniSONE [Deltasone] 3 tab PO QDAY 3 Days #9 tab 06/06/19 Unknown Rx Albuterol Mdi (or & Nicu Only) 2 puff IH QID PRN #1 inha 05/11/20 Unknown Rx [ProAir HFA Inhaler] Clindamycin [Clindamycin CAP] 300 mg PO Q6H 3 Days #12 capsule 05/11/20 Unknown Rx Erythromycin [Erythromycin Ophth 1 cm OU Q4H 7 Days #1 tube 05/11/20 Unknown Rx Oint] Ibuprofen [Motrin 800 MG tab] 800 mg PO Q8HR PRN #15 tablet 05/11/20 Unknown Rx Ketotifen Fumarate [Allergy Eye 1 drop OP BID 7 Days #1 bottle 05/14/20 Unknown Rx Drops] Moxifloxacin 0.5% 1 drops OP Q8H 7 Days #1 bottle 05/14/20 Unknown Rx Albuterol Sulfate [Proventil Hfa] 1 inhalation IH TID PRN #1 12/05/20 Unknown Rx [email or web address] Amoxicillin [Amoxicillin TAB] 875 mg PO BID 10 Days #20 tablet 12/05/20 Unknown Rx Nystas/Diphen/Xyl Visc/Mylanta 30 ml MM Q4H PRN #300 ml 12/05/20 Unknown Rx [Magic Mouthwash] Cetirizine HCl [ZyrTEC] 10 mg PO DAILY #30 capsule 01/14/21 Unknown Rx diphenhydrAMINE [Benadryl CAP] 25 mg PO Q8HR PRN #20 capsule 01/14/21 Unknown Rx predniSONE [Deltasone] 20 mg PO DAILY #5 tablet 01/14/21 Unknown Rx Naproxen 500 mg PO Q12H PRN #12 tablet 01/15/21 Unknown Rx Allergies Allergy/AdvReac Type Severity Reaction Status Date / Time No Known Allergies Allergy Unverified 10/31/18 07:20 ED Review of Systems ROS: Stated complaint: ANKLE INURY LT Other details as noted in HPI Constitutional: denies: chills, fever Eyes: denies: eye pain, eye discharge, vision change ENT: denies: ear pain, throat pain Respiratory: denies: cough, shortness of breath, wheezing Cardiovascular: denies: chest pain, palpitations Endocrine: no symptoms reported Gastrointestinal: denies: abdominal pain, nausea, diarrhea Genitourinary: denies: urgency, dysuria, discharge Musculoskeletal: denies: back pain, joint swelling, arthralgia Skin: denies: rash, lesions Neurological: denies: headache, weakness, paresthesias Psychiatric: denies: anxiety, depression Hematological/Lymphatic: denies: easy bleeding, easy bruising ED Past Medical Hx - Past Medical History Hx Asthma: Yes Additional medical history: obese - Social History Smoking Status: Current Every Day Smoker Substance Use Type: None - Medications Home Medications: Home Medications Medication Instructions Recorded Confirmed Last Taken Type DOXYCYCLINE Hyclate [Vibramycin 100 mg PO Q12HR 7 Days #14 capsule 10/31/18 Unknown Rx CAP] ALBUTEROL NEB's [Proventil 0.083% 2.5 mg IH QID PRN #1 box 06/06/19 Unknown Rx NEBS] Benzonatate [Tessalon Perles] 100 mg PO Q8HR #30 capsule 06/06/19 Unknown Rx predniSONE [Deltasone] 3 tab PO QDAY 3 Days #9 tab 06/06/19 Unknown Rx Albuterol Mdi (or & Nicu Only) 2 puff IH QID PRN #1 inha 05/11/20 Unknown Rx [ProAir HFA Inhaler] Clindamycin [Clindamycin CAP] 300 mg PO Q6H 3 Days #12 capsule 05/11/20 Unknown Rx Erythromycin [Erythromycin Ophth 1 cm OU Q4H 7 Days #1 tube 05/11/20 Unknown Rx Oint] Ibuprofen [Motrin 800 MG tab] 800 mg PO Q8HR PRN #15 tablet 05/11/20 Unknown Rx Ketotifen Fumarate [Allergy Eye 1 drop OP BID 7 Days #1 bottle 05/14/20 Unknown Rx Drops] Moxifloxacin 0.5% 1 drops OP Q8H 7 Days #1 bottle 05/14/20 Unknown Rx Albuterol Sulfate [Proventil Hfa] 1 inhalation IH TID PRN #1 12/05/20 Unknown Rx [email or web address] Amoxicillin [Amoxicillin TAB] 875 mg PO BID 10 Days #20 tablet 12/05/20 Unknown Rx Nystas/Diphen/Xyl Visc/Mylanta 30 ml MM Q4H PRN #300 ml 12/05/20 Unknown Rx [Magic Mouthwash] Cetirizine HCl [ZyrTEC] 10 mg PO DAILY #30 capsule 01/14/21 Unknown Rx diphenhydrAMINE [Benadryl CAP] 25 mg PO Q8HR PRN #20 capsule 01/14/21 Unknown Rx predniSONE [Deltasone] 20 mg PO DAILY #5 tablet 01/14/21 Unknown Rx Naproxen 500 mg PO Q12H PRN #12 tablet 01/15/21 Unknown Rx ED Physical Exam - General General appearance: alert, in no apparent distress - Head Head exam: Present: atraumatic, normocephalic - Eye Eye exam: Present: normal appearance - Neck Neck exam: Present: normal inspection, full ROM. Absent: lymphadenopathy - Respiratory Respiratory exam: Absent: respiratory distress - Cardiovascular Cardiovascular Exam: Present: regular rate - Extremities Exam Extremities exam: Present: normal inspection, full ROM, tenderness, normal capillary refill. Absent: joint swelling, calf tenderness - Expanded Lower Extremity Exam Left Hip exam: Present: normal inspection, full ROM. Absent: tenderness, swelling Upper Leg exam: Present: normal inspection, full ROM. Absent: tenderness, swelling Knee exam: Present: normal inspection, full ROM. Absent: tenderness, swelling Lower Leg exam: Present: normal inspection, full ROM. Absent: tenderness, swelling, abrasion, laceration, ecchymosis, deformity, crepidus, dislocation, erythema, palpable cord, Krystal's sign Ankle exam: Present: normal inspection, full ROM. Absent: tenderness, swelling, abrasion, laceration, ecchymosis, deformity, crepidus, dislocation, erythema, anterior draw sign Foot/Toe exam: Present: normal inspection, full ROM, tenderness. Absent: swelling, abrasion, laceration, ecchymosis, deformity, crepidus, dislocation, erythema, amputation, puncture wound, foreign body, calcaneal tenderness, tenderness at base of 5th metatarsal, nail avulsion, subungual hematoma Neuro vascular tendon exam: Present: no vascular compromise Gait: Positive: observed and limited by pain - Back Exam Back exam: Present: normal inspection, full ROM - Neurological Exam Neurological exam: Present: alert, oriented X3 - Psychiatric Psychiatric exam: Present: normal affect, normal mood - Skin Skin exam: Present: warm, dry, intact, normal color. Absent: rash ED Course Vital Signs 01/27/21 15:29 Temperature 98.4 F Pulse Rate 83 Respiratory 18 Rate Blood Pressure 126/86 O2 Sat by Pulse 99 Oximetry - Reevaluation(s) Reevaluation #1: 01/27/21 15:29 Patient is speaking in full sentences with no signs of distress noted. ED Lower Extremity MDM - Radiology Data [facility] [address] [place] [address] XRay Report Signed Patient: JERILYN LOVE MR#: [id number] : 1990 Acct:[id number] Age/Sex: 30 / F ADM Date: 01/14/21 Loc: ED Attending Dr: Ordering Physician: GILMA RICHARD MD Date of Service: 01/14/21 Procedure(s): XR ankle BILAT 3+V Accession Number(s): [id number] cc: GILMA RICHARD MD Fluoro Time In Minutes: Bilateral ankles INDICATION: Twisting injury FINDINGS: There is diffuse soft tissue swelling in the medial and lateral aspect of the right ankle. Alignment appears normal. Talar dome appears intact. No displaced fracture. The left ankle there is diffuse swelling within the medial and lateral ankle. Talar dome appears intact. Questionable irregularity within the fifth metatarsal on the left. IMPRESSION: 1. Diffuse swelling in the medial lateral ankle bilaterally. 2. Questionable irregularity within the fifth metatarsal proximally on the left. Findings could represent fracture. Left foot radiographs recommended. Signer Name: Bud Hoyt MD Signed: 01/14/2021 11:05 PM Workstation Name: [id number] Transcribed By: CW Dictated By: BONNY HOYT MD Electronically Authenticated By: BONNY HOYT MD Signed Date/Time: 01/14/212304 DD/ 02 TD/TT: - Medical Decision Making 30-year-old female that presents with left ankle fracture. Patient stable and was examined by me. A [place] short leg splint has been reapplied. Patient does have crutches. X-rays has been reviewed from prior visit. Post splint assessment: neurovasular intact; normal cap refill <2 second; normal sensation; denies decreaed sensation; normal ROM of digits. Patient was instructed to follow-up with a orthopedic doctor in 3-5 days or if symptoms worsen and continue return to emergency room as soon as possible. At time of discharge, the patient does not seem toxic or ill in appearance. No acute signs of distress noted. Patient agrees to discharge treatment plan of care. No further questions noted by the patient. Critical care attestation.: If time is entered above; I have spent that time in minutes in the direct care of this critically ill patient, excluding procedure time. ED Disposition Clinical Impression: Aftercare for cast or splint check or change Metatarsal stress fracture of left foot Qualifiers: Encounter type: initial encounter Qualified Code(s): M84.375A - Stress fracture, left foot, initial encounter for fracture Disposition: TO HOME OR SELFCARE Is pt being admited?: No Does the pt Need Aspirin: No Condition: Stable Additional Instructions: Follow-up with a orthopedic doctor in 3-5 days or if symptoms worsen and continue return to emergency room as soon as possible. No physical activity that extremity until cleared by orthopedic doctor [facility] Address [address] [place] [address] Referrals: PRIMARY CAREMD [Referring] - 3-5 Days ALMA FIGUEROA MD [Staff Physician] - 3-5 Days Time of Disposition: 15:33
[2021-01-27 15:31] VITALS: BP 126/86
== END 2021-01-27 15:43 | disposition home or self-care (01) ==
LOC: ED 15:06
DX: M84.375D Stress fracture, left foot, subsequent encounter for fracture with routine healing (principal); J45.909 Unspecified asthma, uncomplicated; Z47.89 Encounter for other orthopedic aftercare; Z79.899 Other long term (current) drug therapy; X58.XXXD Exposure to other specified factors, subsequent encounter
CPT/HCPCS: 99281

== ENCOUNTER 2021-03-15 17:13 | Emergency (ER) | payer MEDICAID ==
[2021-03-15 19:26] VITALS: BP 145/91
--- NOTE | 2021-03-16 01:50 | Emergency Department Report ---
ED ENT HPI - General Chief complaint: Sore Throat Stated complaint: SORE THROAT Time Seen by Provider: 03/15/21 19:53 Source: patient Mode of arrival: Ambulatory Limitations: No Limitations - History of Present Illness Initial comments: 30-year-old morbid obese -[place] female presents to the emergency room for sore throat she has had for 2 days. Patient also complains of a rash that she has had intermittent in the past. Patient denies any nausea no vomiting no fever no chills. Patient is unvaccinated. Patient states she has difficulty s wallowing because of her sore throat. MD complaint: sore throat Onset/Timin -: days(s) Location: throat Severity: moderate Severity scale (0 -10): 7 Quality: burning, sharp Consistency: constant Improves with: none Worsens with: swallowing - Related Data Previous Rx's Medication Instructions Recorded Last Taken Type DOXYCYCLINE Hyclate [Vibramycin 100 mg PO Q12HR 7 Days #14 capsule 10/31/18 Unknown Rx CAP] ALBUTEROL NEB's [Proventil 0.083% 2.5 mg IH QID PRN #1 box 06/06/19 Unknown Rx NEBS] Benzonatate [Tessalon Perles] 100 mg PO Q8HR #30 capsule 06/06/19 Unknown Rx predniSONE [Deltasone] 3 tab PO QDAY 3 Days #9 tab 06/06/19 Unknown Rx Albuterol Mdi (or & Nicu Only) 2 puff IH QID PRN #1 inha 05/11/20 Unknown Rx [ProAir HFA Inhaler] Clindamycin [Clindamycin CAP] 300 mg PO Q6H 3 Days #12 capsule 05/11/20 Unknown Rx Erythromycin [Erythromycin Ophth 1 cm OU Q4H 7 Days #1 tube 05/11/20 Unknown Rx Oint] Ketotifen Fumarate [Allergy Eye 1 drop OP BID 7 Days #1 bottle 05/14/20 Unknown Rx Drops] Moxifloxacin 0.5% 1 drops OP Q8H 7 Days #1 bottle 05/14/20 Unknown Rx Albuterol Sulfate [Proventil Hfa] 1 inhalation IH TID PRN #1 12/05/20 Unknown Rx [email or web address] Amoxicillin [Amoxicillin TAB] 875 mg PO BID 10 Days #20 tablet 12/05/20 Unknown Rx Nystas/Diphen/Xyl Visc/Mylanta 30 ml MM Q4H PRN #300 ml 12/05/20 Unknown Rx [Magic Mouthwash] Cetirizine HCl [ZyrTEC] 10 mg PO DAILY #30 capsule 01/14/21 Unknown Rx diphenhydrAMINE [Benadryl CAP] 25 mg PO Q8HR PRN #20 capsule 01/14/21 Unknown Rx predniSONE [Deltasone] 20 mg PO DAILY #5 tablet 01/14/21 Unknown Rx Naproxen 500 mg PO Q12H PRN #12 tablet 01/15/21 Unknown Rx Amoxicillin/K Clav Tab [Augmentin 1 tab PO Q12HR 10 Days #20 tab 03/16/21 Unknown Rx 875 mg] Ibuprofen [Motrin 800 MG tab] 800 mg PO Q8HR PRN #15 tablet 03/16/21 Unknown Rx Allergies Allergy/AdvReac Type Severity Reaction Status Date / Time No Known Allergies Allergy Unverified 10/31/18 07:20 ED Dental HPI - General Chief complaint: Sore Throat Stated complaint: SORE THROAT Time Seen by Provider: 03/15/21 19:53 Source: patient Mode of arrival: Ambulatory Limitations: No Limitations - Related Data Previous Rx's Medication Instructions Recorded Last Taken Type DOXYCYCLINE Hyclate [Vibramycin 100 mg PO Q12HR 7 Days #14 capsule 10/31/18 Unknown Rx CAP] ALBUTEROL NEB's [Proventil 0.083% 2.5 mg IH QID PRN #1 box 06/06/19 Unknown Rx NEBS] Benzonatate [Tessalon Perles] 100 mg PO Q8HR #30 capsule 06/06/19 Unknown Rx predniSONE [Deltasone] 3 tab PO QDAY 3 Days #9 tab 06/06/19 Unknown Rx Albuterol Mdi (or & Nicu Only) 2 puff IH QID PRN #1 inha 05/11/20 Unknown Rx [ProAir HFA Inhaler] Clindamycin [Clindamycin CAP] 300 mg PO Q6H 3 Days #12 capsule 05/11/20 Unknown Rx Erythromycin [Erythromycin Ophth 1 cm OU Q4H 7 Days #1 tube 05/11/20 Unknown Rx Oint] Ketotifen Fumarate [Allergy Eye 1 drop OP BID 7 Days #1 bottle 05/14/20 Unknown Rx Drops] Moxifloxacin 0.5% 1 drops OP Q8H 7 Days #1 bottle 05/14/20 Unknown Rx Albuterol Sulfate [Proventil Hfa] 1 inhalation IH TID PRN #1 12/05/20 Unknown Rx [email or web address] Amoxicillin [Amoxicillin TAB] 875 mg PO BID 10 Days #20 tablet 12/05/20 Unknown Rx Nystas/Diphen/Xyl Visc/Mylanta 30 ml MM Q4H PRN #300 ml 12/05/20 Unknown Rx [Magic Mouthwash] Cetirizine HCl [ZyrTEC] 10 mg PO DAILY #30 capsule 01/14/21 Unknown Rx diphenhydrAMINE [Benadryl CAP] 25 mg PO Q8HR PRN #20 capsule 01/14/21 Unknown Rx predniSONE [Deltasone] 20 mg PO DAILY #5 tablet 01/14/21 Unknown Rx Naproxen 500 mg PO Q12H PRN #12 tablet 01/15/21 Unknown Rx Amoxicillin/K Clav Tab [Augmentin 1 tab PO Q12HR 10 Days #20 tab 03/16/21 Unknown Rx 875 mg] Ibuprofen [Motrin 800 MG tab] 800 mg PO Q8HR PRN #15 tablet 03/16/21 Unknown Rx Allergies Allergy/AdvReac Type Severity Reaction Status Date / Time No Known Allergies Allergy Unverified 10/31/18 07:20 ED Review of Systems ROS: Stated complaint: SORE THROAT Other details as noted in HPI Comment: All other systems reviewed and negative ED Past Medical Hx - Past Medical History Previous Medical History?: Yes Hx Asthma: Yes Additional medical history: obese - Surgical History Past Surgical History?: No - Social History Smoking Status: Current Every Day Smoker Substance Use Type: None - Medications Home Medications: Home Medications Medication Instructions Recorded Confirmed Last Taken Type DOXYCYCLINE Hyclate [Vibramycin 100 mg PO Q12HR 7 Days #14 capsule 10/31/18 Unknown Rx CAP] ALBUTEROL NEB's [Proventil 0.083% 2.5 mg IH QID PRN #1 box 06/06/19 Unknown Rx NEBS] Benzonatate [Tessalon Perles] 100 mg PO Q8HR #30 capsule 06/06/19 Unknown Rx predniSONE [Deltasone] 3 tab PO QDAY 3 Days #9 tab 06/06/19 Unknown Rx Albuterol Mdi (or & Nicu Only) 2 puff IH QID PRN #1 inha 05/11/20 Unknown Rx [ProAir HFA Inhaler] Clindamycin [Clindamycin CAP] 300 mg PO Q6H 3 Days #12 capsule 05/11/20 Unknown Rx Erythromycin [Erythromycin Ophth 1 cm OU Q4H 7 Days #1 tube 05/11/20 Unknown Rx Oint] Ketotifen Fumarate [Allergy Eye 1 drop OP BID 7 Days #1 bottle 05/14/20 Unknown Rx Drops] Moxifloxacin 0.5% 1 drops OP Q8H 7 Days #1 bottle 05/14/20 Unknown Rx Albuterol Sulfate [Proventil Hfa] 1 inhalation IH TID PRN #1 12/05/20 Unknown Rx [email or web address] Amoxicillin [Amoxicillin TAB] 875 mg PO BID 10 Days #20 tablet 12/05/20 Unknown Rx Nystas/Diphen/Xyl Visc/Mylanta 30 ml MM Q4H PRN #300 ml 12/05/20 Unknown Rx [Magic Mouthwash] Cetirizine HCl [ZyrTEC] 10 mg PO DAILY #30 capsule 01/14/21 Unknown Rx diphenhydrAMINE [Benadryl CAP] 25 mg PO Q8HR PRN #20 capsule 01/14/21 Unknown Rx predniSONE [Deltasone] 20 mg PO DAILY #5 tablet 01/14/21 Unknown Rx Naproxen 500 mg PO Q12H PRN #12 tablet 01/15/21 Unknown Rx Amoxicillin/K Clav Tab [Augmentin 1 tab PO Q12HR 10 Days #20 tab 03/16/21 Unknown Rx 875 mg] Ibuprofen [Motrin 800 MG tab] 800 mg PO Q8HR PRN #15 tablet 03/16/21 Unknown Rx ED Physical Exam - General Limitations: No Limitations General appearance: alert, in no apparent distress, obese - Head Head exam: Present: atraumatic, normocephalic - Eye Eye exam: Present: normal appearance - ENT ENT exam: Present: mucous membranes moist - Expanded ENT Exam Expanded Throat exam: Positive: tonsillar erythema, tonsillomegaly, tonsillar exudate - Neck Neck exam: Present: normal inspection - Respiratory Respiratory exam: Present: normal lung sounds bilaterally. Absent: respiratory distress - Cardiovascular Cardiovascular Exam: Present: regular rate, normal rhythm. Absent: systolic murmur, diastolic murmur, rubs, gallop - GI/Abdominal GI/Abdominal exam: Present: soft, normal bowel sounds - Extremities Exam Extremities exam: Present: normal inspection - Back Exam Back exam: Present: normal inspection - Neurological Exam Neurological exam: Present: alert, oriented X3 - Psychiatric Psychiatric exam: Present: normal affect, normal mood - Skin Skin exam: Present: warm, dry, intact, normal color. Absent: rash ED Course Vital Signs 03/15/21 19:25 Temperature 99.1 F Pulse Rate 103 H Respiratory 14 Rate Blood Pressure 145/91 O2 Sat by Pulse 98 Oximetry ED Medical Decision Making - Medical Decision Making 30-year-old morbid obese -[place] female presents to the emergency room for sore throat she has had for 2 days. Patient also complains of a rash that she has had intermittent in the past. Patient denies any nausea no vomiting no fever no chills. Patient is unvaccinated. Patient states she has difficulty swallowing because of her sore throat. Rapid strep has been sent to lab. Positive for strep Rash try OTC hydrocortisone. Critical care attestation.: If time is entered above; I have spent that time in minutes in the direct care of this critically ill patient, excluding procedure time. ED Disposition Clinical Impression: Severely overweight, Strep pharyngitis, Rash and nonspecific skin eruption Disposition: HOME / SELF CARE / HOMELESS Is pt being admited?: No Does the pt Need Aspirin: No Condition: Stable Instructions: Exercising to Lose Weight Additional Instructions: Strep test came back positive. Complete your antibiotics as prescribed pain medication as needed. Increase your fluid intake advance your diet as tolerated. Prescriptions: Amoxicillin/K Clav Tab [Augmentin 875 mg] 1 tab PO Q12HR 10 Days #20 tab Ibuprofen [Motrin 800 MG tab] 800 mg PO Q8HR PRN #15 tablet PRN Reason: pain Referrals: PRIMARY CAREMD [Primary Care Provider] - 3-5 Days JOHN WATSON MD [Staff Physician] - 3-5 Days
== END 2021-03-16 02:46 | disposition home or self-care (01) ==
LOC: ED 17:13
DX: J02.0 Streptococcal pharyngitis (principal); R21 Rash and other nonspecific skin eruption; E66.01 Morbid (severe) obesity due to excess calories; J45.909 Unspecified asthma, uncomplicated; F17.200 Nicotine dependence, unspecified, uncomplicated
CPT/HCPCS: 87430; 99283